=== PATIENT | female | born 2000 | race Hispanic/Latino ===

== ENCOUNTER 2023-07-06 19:57 | Emergency (ER) | payer BC, OTHER ==
[2023-07-06] MEDS ORDERED: Acetaminophen 500 MG TAB ONE (20:10)
[2023-07-06] MEDS ORDERED: Ibuprofen 200 MG TAB ONE (20:21)
[2023-07-06] MEDS ORDERED: Dexamethasone 10 MG/ML VIAL ONE (20:47)
[2023-07-06] MEDS ORDERED: Lidocaine 1% PF 5 ML VIAL ONE (20:47)
[2023-07-06] MEDS ORDERED: cefTRIAXone (ROCEPHIN) 1 GM VIAL ONE (20:47)
[2023-07-06 21:01] LABS: Influenza A by NAA Not Detected (NotDetected); Influenza B by NAA Not Detected (NotDetected); SARS-CoV-2 NAA Rapid Test Not Detected (NotDetected)
== END 2023-07-06 21:16 | disposition home or self-care (01) ==
LOC: BURERS 19:57
DX: J02.0 Streptococcal pharyngitis (principal)
CPT/HCPCS: 87081; 87430; 96372; 99283; J0696; J1100